=== PATIENT | female | born 1940 | race Asian ===

== ENCOUNTER 2018-03-20 13:21 | Inpatient (IN) | payer OTHER ==
[2018-03-30 02:10] LABS: PLATELET COUNT 449 K/uL (152-353)
== END 2018-03-31 06:20 | disposition expired ==
LOC: PAVB 13:21
PROVIDERS: ADMIT Internal Medicine
CPT/HCPCS: 85027

== ENCOUNTER 2018-03-21 05:35 | Outpatient (CLI) | payer OTHER ==
[2018-03-21 06:38] LABS: PLATELET COUNT 346 K/uL (152-353)
== END 2018-03-21 19:09 | disposition home or self-care (01) ==
LOC: LAB 05:35
PROVIDERS: Internal Medicine
DX: D64.9 Anemia, unspecified (principal); I10 Essential (primary) hypertension; E78.5 Hyperlipidemia, unspecified
CPT/HCPCS: 80053; 80061; 82306; 82607; 83540; 84443; 85027; 87081

== ENCOUNTER 2018-03-24 13:23 | Outpatient (CLI) | payer OTHER | END 2018-03-24 22:21 | disposition home or self-care (01) | LOC: LAB 13:23 | DX: D50.8 Other iron deficiency anemias (principal) | CPT/HCPCS: 82728 ==

== ENCOUNTER 2018-03-29 22:04 | Outpatient (CLI) | payer OTHER | END 2018-03-29 23:46 | disposition home or self-care (01) | LOC: RAD 22:04 → LABW 22:04 → RAD 23:46 | DX: R50.9 Fever, unspecified (principal); R09.89 Other specified symptoms and signs involving the circulatory and respiratory systems ==